=== PATIENT | female | born 1965 | race Hispanic/Latino ===

== ENCOUNTER 2019-01-12 22:43 | Inpatient (IN) | payer OTHER | END 2019-01-23 18:05 | disposition home or self-care (01) | LOC: EDH 22:43 → EDHIP 22:44 → 3DH 01-13 03:25 | DX: A41.9 Sepsis, unspecified organism (principal); N13.2 Hydronephrosis with renal and ureteral calculous obstruction; N13.6 Pyonephrosis; N39.0 Urinary tract infection, site not specified ==